=== PATIENT | male | born 1970 | race Caucasian/White ===

== ENCOUNTER 2017-09-14 02:23 | Emergency (ER) | payer OTHER ==
[2017-09-14] MEDS ORDERED: predniSONE 20 MG Tab PO ONE (02:51)
--- NOTE | 2017-09-14 02:56 | EDM.PDOC ---
ED HPI GENERAL MEDICAL PROBLEM - General Chief Complaint: Respiratory Problem Stated Complaint: BRONCHITIS, HARD TIME BREATHING Time Seen by Provider: 09/14/17 02:34 - History of Present Illness INITIAL COMMENTS - FREE TEXT/NARRATIVE: HISTORY AND PHYSICAL: History of present illness: Patient is a 47-year-old male who states that for the last 5 days he's had a cough productive of phlegm but no fevers nausea or vomiting and no nasal drainage. He says with the cough he does feel short of breath and he was seen at [facility] 4 days ago and was given an albuterol inhaler and amoxicillin and told he had bronchitis. The patient says he has not felt significantly better and he has been hydrating area he has no chest pain or palpitations but he felt more short of breath tonight and he did use his inhaler just about 20 minutes prior to coming here. He says he has been using it without a spacer every 6 hours as needed. He has no cardiac or pulmonary history. When he was at the outside clinic the patient did not have an x-ray nor was he tested for influenza. Review of systems: As per history of present illness and below otherwise all systems reviewed and negative. Past medical history: As per history of present illness and as reviewed below otherwise noncontributory. Surgical history: As per history of present illness and as reviewed below otherwise noncontributory. Social history: No reported history of drug or alcohol abuse. Family history: As per history of present illness and as reviewed below otherwise noncontributory. Physical exam: Gen.: Well-developed well-nourished man who is mildly overweight and nontoxic appearing speaking clearly without breathlessness. Vital signs are noted by me HEENT: Atraumatic, normocephalic, pupils reactive, negative for conjunctival pallor or scleral icterus, mucous membranes moist, throat clear, neck supple, nontender, trachea midline. No cervical adenopathy or nuchal rigidity Lungs: Clear to auscultation with some coarse breath sounds bilaterally but no worker breathing wheezing or stridor, breath sounds equal bilaterally, chest nontender. Heart: S1S2, regular rate and rhythm no overt murmurs Abdomen: Soft, nondistended, nontender. NABS Pelvis: Deferred Genitourinary: Deferred. Rectal: Deferred. Extremities: Atraumatic, negative for cords or calf pain. Neurovascular unremarkable. Neuro: Awake, alert, oriented. Cranial nerves II through XII unremarkable. Cerebellum unremarkable. Motor and sensory unremarkable throughout. Exam nonfocal. Diagnostics: Influenza chest x-ray Therapeutics: Spacer and spacer teaching prednisone DuoNeb When I went to reevaluate the patient and discussed with him his testing results for discharge I re-auscultated his lungs and there is a strong expiratory wheeze in the left base that was not heard previously. His lower lung tuttle sound tighter than when he arrived. I will give a DuoNeb and re- evaluate. His O2 sat on this evaluation was 90%. Patient says he does feel tighter than when he arrived. After the DuoNeb the patient is moving air much better and he no longer has any wheezing. His O2 sat is 94% on room air. I discussed with him at length outpatient and inpatient care and he is declining an observation admission for further hospital care care. He understands my concerns and he would rather try to do this as an outpatient. With that being said I will give him a nebulizer machine via [email or web address] and we will contact them this morning to get him that equipment. I will give him prednisone for home as well as cough medicine and albuterol for his nebulizer machine. I stressed that he needs to contact the clinic first thing in the morning to get a follow-up appointment as well as reasons to return to the ER. Impression: Acute bronchitis with bronchospasm Definitive disposition and diagnosis as appropriate pending reevaluation and review of above. - Related Data Allergies Allergy/AdvReac Type Severity Reaction Status Date / Time No Known Allergies Allergy Verified 09/14/17 02:35 Home Meds: Home Meds . [No Known Home Meds] 09/14/17 [History] Amoxicillin 500 mg PO TID 09/14/17 [History] Inahler 09/14/17 [History] Past Medical History HEENT History: Reports: None - Infectious Disease History Infectious Disease History: Reports: Chicken Pox - Past Surgical History HEENT Surgical History: Reports: Tonsillectomy Social & Family History - Family History Family Medical History: Noncontributory - Tobacco Use Smoking Status *Q: Never Smoker Second Hand Smoke Exposure: No - Caffeine Use Caffeine Use: Reports: None - Recreational Drug Use Recreational Drug Use: No ED ROS GENERAL - Review of Systems Review Of Systems: ROS reveals no pertinent complaints other than HPI. ED EXAM, GENERAL - Physical Exam Exam: See Below (see Dictation) Course - Vital Signs Last Recorded V/S: Last Vital Signs Temp 37.0 C 09/14/17 03:32 Pulse 95 09/14/17 03:56 Resp 19 09/14/17 03:56 BP 142/95 H 09/14/17 03:56 Pulse Ox 94 L 09/14/17 03:56 - Orders/Labs/Meds Orders: Active Orders 24 hr Category Date Time Status Communication Order [RC] STAT Care 09/14/17 02:50 Active RT Aerosol Therapy [RC] ASDIRECTED Care 09/14/17 03:32 Active Chest 2V [CR] Stat Exams 09/14/17 02:56 Taken Meds: Medications Discontinued Medications Generic Name Dose Route Start Last Admin Trade Name Freq PRN Reason Stop Dose Admin Albuterol/Ipratropium 3 ml 09/14/17 03:31 09/14/17 03:34 Duoneb 3.0-0.5 Mg/3 Ml NEB 09/14/17 03:32 3 ml ONETIME ONE Administration Prednisone 60 mg 09/14/17 02:51 09/14/17 02:59 Prednisone PO 09/14/17 02:52 60 mg ONETIME ONE Administration Departure - Departure Time of Disposition: 04:09 Disposition: Home, Self-Care 01 Condition: Good Clinical Impression: Acute bronchitis with bronchospasm - Discharge Information Referrals: PCP,None [Primary Care Provider] - Forms: ED Department Discharge Additional Instructions: The following information is given to patients seen in the emergency department who are being discharged to home. This information is to outline your options for follow-up care. We provide all patients seen in our emergency department with a follow-up referral. The need for follow-up, as well as the timing and circumstances, are variable depending upon the specifics of your emergency department visit. If you don't have a primary care physician on staff, we will provide you with a referral. We always advise you to contact your personal physician following an emergency department visit to inform them of the circumstance of the visit and for follow-up with them and/or the need for any referrals to a consulting specialist. The emergency department will also refer you to a specialist when appropriate. This referral assures that you have the opportunity for followup care with a specialist. All of these measure are taken in an effort to provide you with optimal care, which includes your followup. Under all circumstances we always encourage you to contact your private physician who remains a resource for coordinating your care. When calling for followup care, please make the office aware that this follow-up is from your recent emergency room visit. If for any reason you are refused follow-up, please contact the [facility] emergency department at and ask to speak to the emergency department charge nurse. [facility]- [facility] Family [address] [id number] Please call the clinic first thing in the morning to schedule a follow-up appointment as we discussed. Push hydration and use your rescue inhaler with the spacer as needed. Use her nebulizer machine with the albuterol every 6 hours for the next 2 days and then every 6 hours as needed. Start the prednisone prescription you have been given later this afternoon. Push hydration and return to ER as needed and as discussed. Use the cough medicine, Phenergan with codeine, only when you're at home as it may make you drowsy. You have been given Phenergan with codeine, prednisone, albuterol for nebulizer machine all the [employer] Meds - My Orders Last 24 Hours: My Active Orders 09/14/17 02:50 Communication Order [RC] STAT 09/14/17 02:56 Chest 2V [CR] Stat 09/14/17 03:32 RT Aerosol Therapy [RC] ASDIRECTED - Assessment/Plan Last 24 Hours: My Active Orders 09/14/17 02:50 Communication Order [RC] STAT 09/14/17 02:56 Chest 2V [CR] Stat 09/14/17 03:32 RT Aerosol Therapy [RC] ASDIRECTED
[2017-09-14] MEDS ORDERED: Albuterol/Ipratropium 3.0-0.5 MG/3 ML Neb Soln NEB ONE (03:31)
--- NOTE | 2017-09-14 10:10 | CR ---
EXAM DATE: 09/14/17 PATIENT'S AGE: 47 Patient: ETHAN CASTILLO Facility: [place], [place] Site . Site : [id number] Study: XRay Chest [id number]/13/2018 3:13:19 AM Ordering Physician: Eleonora Boateng Final Report: INDICATION: Cough, shortness of breath, chest pain TECHNIQUE: Chest radiograph 2 views COMPARISON: None FINDINGS: Mediastinum: The heart silhouette is normal in size and morphology. The mediastinum is normal in appearance. Lungs: Both lungs are unremarkable in appearance. No sign of pleural effusion seen. No pneumothorax is identified. Bones and soft tissue: Unremarkable for age. IMPRESSION: 1. No acute cardiopulmonary disease is seen. Dictated by: Jv Russell MD @ 09/14/2017 03:13:47 (Electronic Signature) Report Signed by Proxy. [facility]
== END 2017-09-14 05:05 | disposition home or self-care (01) ==
LOC: MW.ED 02:23
DX: J20.9 Acute bronchitis, unspecified (principal)
CPT/HCPCS: 71046; 87804; 94640; 99284; A9270